=== PATIENT | female | born 1965 | race Caucasian/White ===

== ENCOUNTER 2024-12-09 21:07 | Outpatient (REF) | payer BC, SELFPAY ==
[2024-12-13 12:05] LABS: Chlamydia Result Negative (Negative); GC Result Negative (Negative)
== END 2024-12-09 21:08 | disposition home or self-care (01) ==
LOC: LBN 21:07
PROVIDERS: Visit Provider Physician Assistant
DX: N89.8 Other specified noninflammatory disorders of vagina (principal)
CPT/HCPCS: 87491; 87591; 87480; 87510; 87660